=== PATIENT | male | born 1970 | race Caucasian/White ===

== ENCOUNTER → 2018-11-07 17:11 | Outpatient (CLI) | payer BC, SELFPAY ==
--- NOTE | 2018-11-07 17:25 | XR_ITS ---
XR chest 2V HISTORY: ITS.REASON: HYPERTENSION; TYPE 2 DIABETES MELLITUS WITHOUT COMPLICATION ORDERING PHYSICIAN: Óscar Quiles MD PATIENT AGE: 48 years COMPARISON: 12/21/2016 FINDINGS: The cardiomediastinal silhouette and pulmonary vascularity are within normal limits. The lungs are clear without infiltrates, suspicious nodules, or pleural effusions. No acute bony abnormalities. IMPRESSION: Negative chest, no change with no acute finding
== END ==
PROVIDERS: PCP Family Medicine; Visit Provider Family Medicine
DX: E11.9 Type 2 diabetes mellitus without complications (principal)
CPT/HCPCS: 71046

== ENCOUNTER → 2019-11-01 11:23 | Outpatient (CLI) | payer BC, SELFPAY ==
--- NOTE | 2019-11-01 12:15 | XR_ITS ---
PROCEDURE: XR CHEST 2V CLINICAL HISTORY: UPPER RESPIRATORY INFECTION COMPARISON: CXR CHEST(2 VIEWS-NOT PORTABLE) from 12/21/2016 CXR2V XR chest 2V from 11/07/2018 FINDINGS: The cardiomediastinal silhouette and pulmonary vascularity are within normal limits. The lungs are clear without infiltrates, suspicious nodules, or pleural effusions. No acute bony abnormalities. IMPRESSION: No acute findings. Dictated by: Bal Mead 11/01/2019 13:14 Electronically signed by Bal Mead in [facility] 11/01/2019 13:14
== END ==
PROVIDERS: PCP Nurse Practitioner Family; Visit Provider Nurse Practitioner Family
DX: J06.9 Acute upper respiratory infection, unspecified (principal)
CPT/HCPCS: 71046

== ENCOUNTER 2020-03-31 10:29 | Emergency (ER) | payer BC, SELFPAY ==
[2020-03-31 10:30] VITALS: BP 164/109; PULSE 80; RESP 16; TEMP 36.7; O2SAT 97; BMI 34.2
--- NOTE | 2020-03-31 10:44 | XR_ITS ---
PROCEDURE: XR RIBS RT MIN 3V W CXR1V CLINICAL INDICATION: fall, right chest wall pain COMPARISON: CXR CHEST(2 VIEWS-NOT PORTABLE) from 12/21/2016 CXR2V XR chest 2V from 11/07/2018 XR CHEST 2V from 11/01/2019 FINDINGS: The lung rodriguez are fairly well expanded and appear clear of infiltrate. Cardiac size is normal and vascularity is normal and there is no pleural fluid. Oblique right rib films show minor cortical thickening of the 12th rib anteriorly probably due to old healed fracture. I see no definite acute right rib fracture. IMPRESSION: No acute findings. Dictated by: Dr. Mohit Alex MD 03/31/2020 11:[address] Mohit Alex MD in [facility] 03/31/2020 11:57
--- NOTE | 2020-03-31 10:57 | PC.NURSE ---
Pt with rad
--- NOTE | 2020-03-31 11:01 | PC.NURSE ---
pt return from radiology
--- NOTE | 2020-03-31 11:02 | PC.NURSE ---
Pt returned from rad
--- NOTE | 2020-03-31 11:52 | HMH.EDGENADL ---
ED Disposition Clinical Impression: Rib contusion Disposition: Home, Self-Care Condition on Discharge: Good Prescriptions: Nabumetone 750 mg PO BID 10 Days #20 tab Transmission Status: Pending to [facility] # Methocarbamol [Robaxin 500mg Tab*] 500 mg PO QID 10 Days #30 tab Transmission Status: Pending to [facility] # Referrals: Óscar Quiles MD [Primary Care Provider] - - Critical Care Critical Care Time: No Attestation: On 03/31/20, the high probability of a clinically significant, sudden or life threatening deterioration of the following system(s) required my full and direct attention, intervention and personal management. The time I documented below is in addition to time spent performing reported procedures but includes the following listed in this critical care notation. Medical Decision Making - Medical Records Medical records reviewed: Yes: I reviewed the patient's medical records. - Julio C Inquiry Pt receiving controlled substance: No Vital Signs: 03/31/20 10:30 Temperature 98.1 F Temperature Source Oral Pulse Rate [Left Radial] 80 Respiratory Rate 16 Blood Pressure [Right Arm] 164/109 H Blood Pressure Mean [Right Arm] 127 Blood Pressure Position [Right Arm] Sitting 02 Sat by Pulse Oximetry 97 Oxygen Delivery Method Room Air - Lab Data Lab results reviewed: Yes: I reviewed the patient's lab results. Orders (Tests/Meds): ORDERS Category Date Time Status XR ribs RT min 3V w CXR1V Stat Exams 03/31/20 10:44 Taken - Radiology Data #1 Image(s): Chest Preliminary Findings: Normal/NAD General Adult HPI - General Chief complaint: PAIN Stated complaint: AO 1000 Fell 4 ft onto his ribs Time Seen by Provider: 03/31/20 11:52 Mode of Arrival: Ambulatory Limitations: No Limitations Description of Symptoms (Recalled from ER Triage Doc. by RN): to ed per pvt car with c/o rt side rib pain pt states he was building a deck walking across a joust it broke he fell landing on another joust it broke and fell approx 4 ft to the ground. pt denies any abd pain, nausea, vomiting - History of Present Illness HPI narrative: 49-year-old gentleman was building a deck fell off 1 of the ER joists and landed on his rib cage on 1 of the joystick below. Fell roughly 3 feet. He is complaining about some chest wall pain. He describes his pain as a sharp sensation midaxillary line over the fifth and sixth ribs. He states his pain is 4-10 classifies as sharp. Alleviating factors include rest exacerbating factors include increasing intrathoracic pressure. Patient denies any nausea vomiting diarrhea. Patient denies any shortness of breath or cough. Patient denies any loss of taste or smell. Patient denies any general malaise fatigue arthralgias myalgias. Denies any overt subjective or objective fevers. - Related Data Previous Rx's Medication Instructions Recorded Amoxicillin/Potassium Clav 1 tab PO Q12H #20 tab 03/01/18 [Augmentin 875-125 Tablet] Methocarbamol [Robaxin 500mg Tab*] 500 mg PO QID 10 Days #30 tab 03/31/20 Nabumetone 750 mg PO BID 10 Days #20 tab 03/31/20 Allergies Allergy/AdvReac Type Severity Reaction Status Date / Time montelukast [From [facility]] Allergy Verified 03/01/18 09:59 [facility] History - Hepatitis A Screen Drug use history?: No High risk sexual behaviors?: No History of sexually transmitted infection?: No Currently employed?: No Childcare worker?: No Do you have indoor plumbing?: Yes Do you have electricity?: Yes Attestation statement:: This patient has been screened for Hepatitis A risk factors. I have reviewed the patient's past medical history: Yes Medical History: Denies:: Diabetes Mellitus Type 1, Diabetes Mellitus Type 2, Hypertension Other Medical History: Reports: Other (allergies) Other Surgeries: Yes: Other (nose x 2) Amputation: No Fractures: No - Social History Smoking Status: Former smoke
[2020-03-31 12:18] VITALS: BP 164/109; PULSE 80; RESP 16; TEMP 36.7; O2SAT 97
== END 2020-03-31 12:19 | disposition home or self-care (01) ==
PROVIDERS: Emergency Provider Family Medicine; PCP Family Medicine
DX: S20.212A Contusion of left front wall of thorax, initial encounter (principal); S20.211A Contusion of right front wall of thorax, initial encounter; W17.89XA Other fall from one level to another, initial encounter; Y92.89 Other specified places as the place of occurrence of the external cause; Z87.891 Personal history of nicotine dependence
CPT/HCPCS: 71101; 99282

== ENCOUNTER 2020-04-03 16:54 | Emergency (ER) | payer BC, SELFPAY ==
[2020-04-03 16:56] VITALS: BP 136/94; PULSE 91; RESP 18; TEMP 36.9; O2SAT 97; BMI 34.2
--- NOTE | 2020-04-03 17:03 | HMH.EDGENADL ---
ED Disposition Clinical Impression: Right rib fracture Qualifiers: Encounter type: initial encounter Rib fracture type: single rib Fracture type: closed Qualified Code(s): S22.31XA - Fracture of one rib, right side, initial encounter for closed fracture Disposition: Home, Self-Care Condition on Discharge: Fair Instructions: DI for Rib Fracture Additional Instructions: Percocet as needed for pain. Do not take Erbacon while taking Percocet. Resume Erbacon after Percocet is gone. Additional instructions for RIB INJURIES: See your physician as soon as possible for further evaluation. Hold a pillow against your injured ribs to help with pain when coughing or sneezing. Sleep with several pillows to help support you in the most comfortable position. Take deep breaths frequently. Return immediately if shortness of breath, intolerable pain, coughing of blood, abdominal pain or vomiting. Additional instructions for CONTROLLED SUBSTANCES: You have been prescribed a medication that is a controlled substance. Controlled substances include pain medications known as opiates and sedative nerve medications known as benzodiazepines. Tramadol, fioricet, and gabapentin are also controlled substances. Some common opiates include: Codeine (such as Tylenol #3) Hydrocodone (Vicodin, Lortab, Lorcet, Erbacon) Oxycodone (Percocet, Percodan, Oxycodone, Oxy IR) Some common benzodiazepines include: Diazepam (Valium) Lorazepam (Ativan) Alprazolam (Xanax) Clonazepam (Klonopin) Oxazepam (Serax) All of these controlled substances are highly addictive and frequently abused. Misuse can and frequently does lead to addiction as well as overdose and . Medication should be stored in a locked cabinet or other secure storage unit. Do not store the medication in a motor vehicle. Short term supplies, 3 days or less, are prescribed because of the highly addictive nature of the medication. Any of the controlled substance medication NOT taken should be disposed of properly and NOT SAVED. The recommended method of disposing of unused medications is: Place the medicines in a sealable plastic bag. If the medicine is a solid, crush it or add water to dissolve it. Add something undesirable (cat litter, coffee grounds, etc.) Dispose of sealed bag in household trash Do not flush or pour unused medicines down a sink or drain. Controlled substances should not be shared, given away or sold. Because of the addictive nature and frequent abuse, these medications are sometimes stolen. These medications should be kept in a safe place where they cannot be stolen. Do not keep them in your car or purse. Lost or stolen prescriptions for controlled substances WILL NOT BE REFILLED in this emergency department, regardless of whether a police report was filed. Prescriptions: Oxycodone HCl/Acetaminophen [Percocet 5/325mg tablet] 1 tab PO Q6HP PRN #12 tab PRN Reason: Moderate To Severe Pain Transmission Status: Received by [facility] #[id number] Referrals: Óscar Quiles MD [Primary Care Provider] - - Critical Care Critical Care Time: No Attestation: On , the high probability of a clinically significant, sudden or life threatening deterioration of the following system(s) required my full and direct attention, intervention and personal management. The time I documented below is in addition to time spent performing reported procedures but includes the following listed in this critical care notation. Medical Decision Making - Medical Records Medical records reviewed: Yes: I reviewed the patient's medical records. - Julio C Inquiry Pt receiving controlled substance: Yes Julio C was queried for this patient: Yes Reference #:: [id number] Risks and benefits of using a controlled substance: were not discussed with pt by me Comment: 19 rxs. Gets 60 hydrocodone- APAP/month. last 03/31/20 Vital Signs: 04/03/20 16:56 04/03/20 18:18 Temp
--- NOTE | 2020-04-03 17:14 | CT_ITS ---
PROCEDURE: CT CHEST WO CON CLINICAL INDICATION: injured ribs COMPARISON: ABDPELW CT ABD PELVIS W/ CONTRAST from 05/29/2015 TECHNIQUE: Axial images obtained with sagittal and coronal reformats. All CT scans at the facility use one or more dose reduction, viz: automated exposure control, ma/kV adjustment per patient size (including targeted exams where dose is matched to indication, i.e. head), or iterative reconstruction technique. FINDINGS: Tracheobronchial tree is unremarkable. There are few patchy infiltrates within the left lower lobe. The thyroid is unremarkable. There are coronary artery calcifications. There is no significant mediastinal adenopathy. There is a small hernia. Adrenal glands are unremarkable. Hepatic steatosis is noted. There is nondisplaced fracture of the anterior right T6 rib IMPRESSION: Nondisplaced fracture right anterior T6 rib, left lower lobe infiltrate, hepatic steatosis Dictated by: Justin Beltran 04/04/2020 08:29 Electronically signed by Justin Beltran in [facility] 04/04/2020 08:29
--- NOTE | 2020-04-03 18:08 | PC.NURSE ---
Dr Carpio in with PT.
[2020-04-03 18:18] VITALS: BP 134/85; PULSE 80; RESP 20; TEMP 36.8; O2SAT 98
== END 2020-04-03 18:21 | disposition home or self-care (01) ==
PROVIDERS: Emergency Provider Emergency Medicine; PCP Family Medicine
DX: S22.31XA Fracture of one rib, right side, initial encounter for closed fracture (principal); W01.0XXA Fall on same level from slipping, tripping and stumbling without subsequent striking against object, initial encounter
CPT/HCPCS: 71250; 96372; 99282; J2405

== ENCOUNTER → 2021-02-18 17:41 | Outpatient (CLI) | payer BC, SELFPAY ==
--- NOTE | 2021-02-18 17:45 | XR_ITS ---
PROCEDURE INFORMATION: Exam: XR Left Wrist Exam date and time: 02/18/2021 5:45 PM Age: 50 years old Clinical indication: Left; Patient HX: Wrist pain, no known injury; Additional info: Left wrist pain TECHNIQUE: Imaging protocol: XR Left wrist. Views: 3 or more views. COMPARISON: No relevant prior studies available. FINDINGS: Bones/joints: There is no evidence of acute fracture.There is no evidence of malalignment or dislocation. Soft tissues: Normal. IMPRESSION: There is no evidence of acute fracture.There is no evidence of malalignment or dislocation.
[2021-02-18 18:38] LABS: Basophils % 0.3 % (0.1-2.0); Eosinophils # 0.2 K/mm3 (0.0-0.4); Hematocrit 43.2 % (42.0-52.0); Hemoglobin 14.7 g/dL (14.1-18.0); Lymphocytes # 3.4 K/mm3 (0.7-4.5); Lymphocytes % 41.8 % (10-50); Mean Corpuscular HGB Conc 33.9 g/dL (31.8-35.4); Mean Corpuscular Hemoglobin 29.9 pg (27.0-31.2); Mean Corpuscular Volume 88.2 fl (80-94); Mean Platelet Volume 7.6 fl (7.4-10.4); Monocytes # 0.5 K/mm3 (0.1-1.0); Monocytes % 6.4 % (1.7-9.3); Neutrophils # 4.1 K/mm3 (1.8-7.8); Neutrophils % 49.5 % (37.0-80.0); Platelet Count 226 K/mm3 (142-424); White Blood Count 8.2 K/mm3 (4.8-10.8)
[2021-02-18 18:45] LABS: Chloride 102 mmol/L (98-107); Sodium 137 mmol/L (136-145)
[2021-02-18 18:46] LABS: Potassium 4.4 mmoL/L (3.5-5.1)
[2021-02-18 18:48] LABS: Alanine Aminotransferase 35 U/L (12-78); Albumin Level 4.5 g/dl (3.5-5.0); Alkaline Phosphatase 75 U/L (38-126); Anion Gap 12.4 mEq/L (5-15); Aspartate Amino Transferase 27 U/L (17-59); Bilirubin,Total 0.6 mg/dl (0.2-1.3); Blood Urea Nitrogen 16 mg/dl (9-20); Calcium 9.6 mg/dl (8.4-10.2); Carbon Dioxide 27 mmol/L (22.0-30.0); Estimated Glomerular Filt Rate 89 ml/min (>60); GFR (African American) 108 ML/MIN (>60); Globulin 2.3 g/dL (1.3-3.2); Glucose 144 mg/dl (74-100); Total Protein,Serum 6.8 g/dl (6.3-8.2)
[2021-02-18 19:06] LABS: Uric Acid 5.7 mg/dl (3.5-8.5)
[2021-02-18 19:20] LABS: Thyroid Stimulating Hormone 2.08 uIU/mL (0.465-4.68)
[2021-02-18 20:13] LABS: Vitamin B12 313 pg/mL (239-931)
[2021-02-18 20:17] LABS: Folate 8.27 ng/mL
[2021-02-18 20:55] LABS: Erythrocyte Sedimentation Rate 11 mm/hr (0-20)
[2021-02-20 09:20] LABS: RA Latex Turbid. <10.0 IU/mL (0.0-13.9)
[2021-02-23 10:37] LABS: Antinuclear Antibodies, IFA Negative (.)
== END ==
PROVIDERS: PCP Family Medicine; Visit Provider Specialist
DX: M54.2 Cervicalgia (principal); Q76.1 Klippel-Feil syndrome; R25.1 Tremor, unspecified; M25.532 Pain in left wrist; M25.541 Pain in joints of right hand; M25.542 Pain in joints of left hand; G89.29 Other chronic pain
CPT/HCPCS: 36415; 73110; 80053; 82607; 82746; 84443; 84550; 85025; 85651; 86038; 86431

== ENCOUNTER 2022-06-23 08:11 | Emergency (ER) | payer BC, SELFPAY ==
[2022-06-23 08:40] VITALS: BP 140/90; PULSE 73; RESP 19; TEMP 36.8; O2SAT 98; BMI 34.2
--- NOTE | 2022-06-23 09:06 | EXP.UTC ---
Discharge Plan Disposition Patient Disposition: Home, Self-Care Condition: Good Prescriptions Prescriptions: New amoxicillin-pot clavulanate 875-125 mg Tablet 1 tab PO Q12H Qty: 20 0RF No Action metformin 850 mg tablet 850 mg PO BID sumatriptan succinate 50 mg tablet 50 mg PO DAILYP PRN (Reason: Headache) glimepiride 2 mg tablet 2 mg PO DAILY Referrals Follow up/Referrals: Óscar Quiles MD [Primary Care Provider] - See instructions Activity Restrictions/Add. Instructions Additional Instructions/Restrictions: *Monitor Temp, Over the counter Motrin or Tylenol as directed/as needed Tylenol every 4 hours and Motrin every 6 hours (as long as your family doctor has told you that you can take it) for fever or pain. and straight to ER if unable to lower temp less than 101.0 after medication given *Warm salt water gargles may help to soothe the throat *Throat Lozenges? *Warm fluids like tea with honey may help to soothe the throat? *Sleep elevated *Humidifier/Vaporizer *Flonase 2 sprays in each nostril daily but be aware that it may take 2-3 days before you notice improvement Follow up IMMEDIATELY for new or worsening symptoms or no Noticeable improvement over the next 48-72 hours. 911 for difficulty breathing or swallowing Clinical Impressions Clinical Impression: Sinusitis Instructions Patient Instructions: DI for Sinusitis, Sinusitis Discharge ED Provider: Lola Taylor [facility] General Stated complaint: drainage,throat feels scratchy Mode of Arrival: Ambulatory Source of Information: Patient Limitations: No Limitations Time Seen by Provider: 06/23/22 09:06 Description of Symptoms (Recalled from Triage Doc. by RN): PATIENT C/O BILATERAL EAR PAIN, AND SINUS DRAINAGE/PRESSURE X 1 WEEK HEENT Symptoms (Recalled from RN notes): Yes Resp Symptoms (Recalled from RN notes): No Skin Symptoms (Recalled from RN notes): No MS Symptoms (Recalled from RN notes): No Functional Status (Recalled from RN notes): WNL History of Present Illness Provider Complaint: Patient states that he has been having sinus problems for over a week States that he is having sinus pain and pressure and pressure behind his eyes States that he gets it about this time every year and has to get something for it States that he has tried OTC meds and they havent helped so he came in Related Data Home Medications Medication Instructions Recorded Confirmed metformin 850 mg tablet 850 mg PO BID Diabetes 02/17/21 06/23/22 glimepiride 2 mg tablet 2 mg PO DAILY Diabetes 06/23/22 06/23/22 sumatriptan succinate 50 mg tablet 50 mg PO DAILYP PRN Headache 06/23/22 06/23/22 Previous Rx's Medication Instructions Recorded amoxicillin 875 mg-potassium 1 tab PO Q12H #20 tabs 06/23/22 clavulanate 125 mg tablet Allergies Allergy/AdvReac Type Severity Reaction Status Date / Time No Known Allergies Allergy Verified 03/24/21 14:33 Worker's Comp Is this a Worker's Comp case?: No [facility] Medical History (Updated 06/23/22 @ 09:12 by Lola Taylor APRN) Diabetes mellitus, type 2 Social History (Updated 06/23/22 @ 09:00 by Mary Garcia RN) Smoking Status: Former smoker alcohol intake: never substance use type: denies use current occupational status: employed Travel in the last 8 weeks: None household members: other housing: other ROS Obtained: Yes All systems reviewed & no additional complaints except as documented and Yes Systems reviewed as appropriate & no additional complaints except as documented Constitutional Constitutional: Reports system reviewed and no additional complaints, except as documented and Reports as per HPI ENT Ears, Nose, Mouth, and Throat: Reports system reviewed and no additional complaints, except as documented, Reports as per HPI, Reports sinus pain and Reports sinus pressure Cardiovascular Cardiovascular: Reports system reviewed and no a
[2022-06-23 09:15] VITALS: BP 140/90; PULSE 73; RESP 19; TEMP 36.8; O2SAT 98
== END 2022-06-23 09:20 | disposition home or self-care (01) ==
PROVIDERS: Emergency Provider Nurse Practitioner; PCP Family Medicine
DX: J01.90 Acute sinusitis, unspecified (principal)
CPT/HCPCS: 99212; G0463

== ENCOUNTER 2022-07-22 16:45 | Emergency (ER) | payer BC, SELFPAY ==
[2022-07-22 17:20] VITALS: BP 124/74; PULSE 74; RESP 20; TEMP 36.6; O2SAT 96; BMI 34.2
--- NOTE | 2022-07-22 17:31 | EXP.UTC ---
Discharge Plan Disposition Patient Disposition: Left Without Being Seen Clinical Impressions Clinical Impression: Patient left after triage Discharge ED Provider: Boris Woods [facility] HPI General Stated complaint: drainage, neck pain Left Time Seen by Provider: 07/22/22 17:31 History of Present Illness Provider Complaint: He left without being fully evaluated. Related Data Home Medications Medication Instructions Recorded Confirmed metformin 850 mg tablet 850 mg PO BID Diabetes 02/17/21 06/23/22 glimepiride 2 mg tablet 2 mg PO DAILY Diabetes 06/23/22 06/23/22 sumatriptan succinate 50 mg tablet 50 mg PO DAILYP PRN Headache 06/23/22 06/23/22 Previous Rx's Medication Instructions Recorded amoxicillin 875 mg-potassium 1 tab PO Q12H #20 tabs 06/23/22 clavulanate 125 mg tablet Allergies Allergy/AdvReac Type Severity Reaction Status Date / Time No Known Allergies Allergy Verified 03/24/21 14:33 [facility] Medical History (Updated 07/22/22 @ 18:28 by Mary Garcia RN) Diabetes mellitus, type 2 Social History (Updated 07/22/22 @ 17:32 by Mary Garcia RN) Smoking Status: Former smoker alcohol intake: never substance use type: denies use current occupational status: employed Travel in the last 8 weeks: None household members: other housing: other ROS Obtained: Yes All systems reviewed & no additional complaints except as documented Physical Exam General General appearance: alert Respiratory Respiratory exam: Present normal lung sounds bilaterally Cardiovascular Cardiovascular exam: Present regular rate Neurological Exam Neurological exam: Present alert Medical Decision Making Julio C Inquiry Pt receiving controlled substance: No
[2022-07-22 18:27] VITALS: BP 124/74; PULSE 74; RESP 20; TEMP 36.6; O2SAT 96
== END 2022-07-22 18:28 | disposition left against medical advice (07) ==
PROVIDERS: Emergency Provider Nurse Practitioner Family; PCP Family Medicine
DX: M54.2 Cervicalgia (principal); E11.9 Type 2 diabetes mellitus without complications; Z53.21 Procedure and treatment not carried out due to patient leaving prior to being seen by health care provider; Z79.84 Long term (current) use of oral hypoglycemic drugs; Z79.899 Other long term (current) drug therapy; Z87.891 Personal history of nicotine dependence

== ENCOUNTER 2022-09-29 09:37 | Emergency (ER) | payer BC, SELFPAY ==
[2022-09-29 09:55] VITALS: BP 168/98; PULSE 76; RESP 20; TEMP 36.4; O2SAT 95; BMI 34.2
--- NOTE | 2022-09-29 10:11 | EXP.UTC ---
Discharge Plan Disposition Patient Disposition: Home, Self-Care Condition: Good Prescriptions Prescriptions: No Action metformin 850 mg tablet 850 mg PO BID sumatriptan succinate 50 mg tablet 50 mg PO DAILYP PRN (Reason: Headache) glimepiride 2 mg tablet 2 mg PO DAILY amoxicillin-pot clavulanate 875-125 mg Tablet 1 tab PO Q12H Qty: 20 0RF Referrals Follow up/Referrals: Óscar Quiles MD [Primary Care Provider] - See instructions Activity Restrictions/Add. Instructions Additional Instructions/Restrictions: Follow up with your Family Doctor Return if needed Straight to ER if any life threatening symptoms Clinical Impressions Clinical Impression: Encounter for laboratory testing for COVID-19 virus Stand Alone Forms Stand Alone Forms: Work/School Release Instructions Patient Instructions: Coronavirus Disease 2019, COVID-19: Testing and Tracing Discharge ED Provider: Lola Taylor [facility] General Stated complaint: Covid+ 09/24 retest Mode of Arrival: Ambulatory Source of Information: Patient Limitations: No Limitations Time Seen by Provider: 09/29/22 10:11 Description of Symptoms (Recalled from Triage Doc. by RN): PATIENT NEEDING RETESTED FOR COVID FOR WORK. REPORTS A POSITIVE COVID TEST ON WEDNESDAY HEENT Symptoms (Recalled from RN notes): No Resp Symptoms (Recalled from RN notes): No Skin Symptoms (Recalled from RN notes): No MS Symptoms (Recalled from RN notes): No Functional Status (Recalled from RN notes): WNL History of Present Illness Provider Complaint: Patient states that he had tested positive last week for COVID States that he has Quarantined for his 5 days and no longer having symptoms but work wanted him to get retested before he can return Related Data Home Medications Medication Instructions Recorded Confirmed metformin 850 mg tablet 850 mg PO BID Diabetes 02/17/21 06/23/22 glimepiride 2 mg tablet 2 mg PO DAILY Diabetes 06/23/22 06/23/22 sumatriptan succinate 50 mg tablet 50 mg PO DAILYP PRN Headache 06/23/22 06/23/22 Previous Rx's Medication Instructions Recorded amoxicillin 875 mg-potassium 1 tab PO Q12H #20 tabs 06/23/22 clavulanate 125 mg tablet Allergies Allergy/AdvReac Type Severity Reaction Status Date / Time No Known Allergies Allergy Verified 03/24/21 14:33 Worker's Comp Is this a Worker's Comp case?: No [facility] Disclaimer: The information contained in this section may have been updated after the patient was seen, as this information can be updated by other users. Medical History (Updated 09/29/22 @ 10:14 by Lola Taylor APRN) Diabetes mellitus type 1 Social History (Updated 09/29/22 @ 10:05 by Mary Garcia RN) Smoking Status: Former smoker alcohol intake: never substance use type: denies use current occupational status: employed Travel in the last 8 weeks: None household members: other housing: other ROS Obtained: Yes All systems reviewed & no additional complaints except as documented and Yes Systems reviewed as appropriate & no additional complaints except as documented Constitutional Constitutional: Reports system reviewed and no additional complaints, except as documented and Reports as per HPI ENT Ears, Nose, Mouth, and Throat: Reports system reviewed and no additional complaints, except as documented and Reports as per HPI Cardiovascular Cardiovascular: Reports system reviewed and no additional complaints, except as documented and Reports as per HPI Respiratory Respiratory: Reports system reviewed and no additional complaints, except as documented and Reports as per HPI Gastrointestinal Gastrointestingal: Reports system reviewed and no additional complaints, except as documented and as per HPI Physical Exam General General appearance: alert and in no apparent distress Expanded ENT Exam Nose exam: Absent sinus tenderness Throat exam: Present normal inspection Respiratory Respirator
[2022-09-29 10:14] VITALS: BP 168/98; PULSE 76; RESP 20; TEMP 36.4; O2SAT 95
== END 2022-09-29 10:20 | disposition home or self-care (01) ==
PROVIDERS: Emergency Provider Nurse Practitioner; PCP Family Medicine
DX: U07.1 COVID-19 (principal)
CPT/HCPCS: 99212; C9803; G0463; U0003; U0005

== ENCOUNTER 2022-12-02 08:13 | Day surgery (SDC) | payer BC, SELFPAY ==
[2022-11-04 14:14] VITALS: BMI 33.4
[2022-12-02] VITALS (8 sets, daily range): BP systolic 109–141; BP diastolic 57–81; PULSE 67–82; RESP 15–18; TEMP 36.3–36.6; O2SAT 92–97
[2022-12-02 09:07] LABS: POC Glucose,Bedside 198 (70-110)
--- NOTE | 2022-12-02 09:37 | P.PN_ITS ---
[facility] Disclaimer: The information contained in this section may have been updated after the patient was seen, as this information can be updated by other users. Medical History Diabetes mellitus type 1 History of deviated nasal septum Hx of nasal polyp Hypertension Surgical History H/O vasectomy History of cholecystectomy Family History Other Family history of diabetes mellitus type II Social History Smoking Status: Former smoker alcohol intake: never substance use type: denies use current occupational status: employed Travel in the last 8 weeks: None household members: significant other housing: house lives independently: Yes marital status: single current occupational exposures/hazards: Yes caffeine: Yes physical activity: none special eden needs: No agree to transfusion: No do you feel safe at home: Yes victim of physical abuse: No victim of emotional abuse: No victim of sexual abuse: No would you like helpful sources: No [facility] Anesthesia Checklist Patient Identification Patient Identification: Arm Band Structural Data Admitted From: Home Planned Operative Procedure/s: Colonoscopy Consent for Planned Operative Procedure(s) Verified: Yes Verified Documents: Surgical Consent and History and Physical NPO Status Verified Time NPO: 00:00 Additional verifications Anesthesia Reactions: No Airway Assessment C-Spine Mobility Assessed: Yes TMJ Mobility Assessed: Yes Dentition: Good Dentition Neurological Assessment Level of Consciousness: Awake and Alert Anesthesia Plan Anesthesia Risk discussed: Yes Anesthesia Plan: Verified ASA Class: II Anesthesia Type: MAC
--- NOTE | 2022-12-02 09:56 | HMH.SCOPE ---
Procedure: Date: 12/02/22 Patient Date of :: 1970 Procedure Performed:: Colonoscopy Indications:: Screening colonoscopy Performing Provider:: Rashi Torres MD Referring Provider:: Norberto Quiles MD Sedation:: See RN records Procedure:: After placing the patient in the left lateral decubitus position, the colonoscopy was gently inserted into the rectum and under direct visualization advanced to the cecum which was identified by transillumination in the right lower quadrant, identification of the ileocecal valve, appendiceal orifice, and cecal strap. Color, texture, mucosa, and anatomy of the colon were carefully examined with the scope. Findings:: Anal canal: normal Rectum: Sessile polyp less than 5 mm in size. Removed with cold forceps Sigmoid colon: normal without polyps or inflammatory changes Descending colon: normal without polyps or inflammatory changes Splenic flexure: normal Transverse colon: normal without polyps or inflammatory changes Hepatic flexure: normal Ascending colon: normal without polyps or inflammatory changes Cecum: normal Terminal ileum: not visualized Impression: Polyp of rectum Recommendations:: Await pathology results Repeat colonoscopy in 5 years Complications:: None Estimated blood obtained (mL): 0
== END 2022-12-02 10:50 | disposition home or self-care (01) ==
PROVIDERS: PCP Family Medicine; Visit Provider Internal Medicine
PROC: 0DJD8ZZ Inspection of Lower Intestinal Tract, Via Natural or Artificial Opening Endoscopic (ICD-10-PCS; CPT 45378; principal; 2022-12-02 09:30)
DX: Z12.11 Encounter for screening for malignant neoplasm of colon (principal); Z79.899 Other long term (current) drug therapy; E11.9 Type 2 diabetes mellitus without complications; K62.1 Rectal polyp
CPT/HCPCS: 45380; 82962; 88305

== ENCOUNTER 2023-01-18 08:09 | Emergency (ER) | payer BC, SELFPAY ==
[2023-01-18 08:30] VITALS: BP 146/94; PULSE 76; RESP 18; TEMP 36.3; O2SAT 96; BMI 33.4
--- NOTE | 2023-01-18 09:08 | EXP.UTC ---
Discharge Plan Disposition Patient Disposition: Home, Self-Care Condition: Good Prescriptions Prescriptions: New benzonatate 100 mg capsule 100 mg PO TID PRN (Reason: cough) Qty: 30 0RF amoxicillin-pot clavulanate 875-125 mg Tablet 1 tab PO Q12H Qty: 20 0RF guaifenesin [Mucinex] 600 mg tablet extended release 12hr 1,200 mg PO BID PRN (Reason: cough) Qty: 20 0RF No Action metformin 850 mg tablet 850 mg PO BID lisinopril 10 mg tablet 10 mg PO DAILY Label Comments: TAKE 1 TABLET BY MOUTH EVERY DAY montelukast [Singulair] 10 mg Tablet 10 mg PO DAILY loratadine [Claritin] 10 mg Tablet 10 mg PO DAILY Referrals Follow up/Referrals: Óscar Quiles MD [Primary Care Provider] - See instructions Activity Restrictions/Add. Instructions Additional Instructions/Restrictions: Start antibiotic today. Be sure to complete entire prescription even if feeling better Monitor temp. Tylenol every 4 hours as needed and / or ibuprofen every 6 hours as needed ( As long as your primary care physician has told you that it ok to take both. For fever/aches/pains ER if no less than 101 despite Tylenol or Motrin Humidifier/vaporizer or hot steamy shower Inhaler every 4-6 hours as needed like we discussed. If unsure how to use it, ask pharmacist to demonstrate how. Should help open airways and improve cough, wheezing, and shortness of breath Mucinex for your cough and cough suppressant only at night. Be sure to drink lots of water. *Tessalon Perles will not cause drowsiness but use at bedtime to help stop cough so that you may get some rest. Follow up IMMEDIATELY for new or worsening of symptoms OR no noticeable improvement over the next 48-72 hours. 911 immediately for any life threatening symptoms such as chest pain or difficulty breathing Clinical Impressions Clinical Impression: Sinusitis Qualifiers: Sinusitis location: unspecified location Chronicity: unspecified Qualified Code(s): J32.9 - Chronic sinusitis, unspecified Instructions Patient Instructions: Sinusitis, Acute Bronchitis, DI for Sinusitis Discharge ED Provider: Lola Taylor [facility] General Stated complaint: Drainage, chest congestion Mode of Arrival: Ambulatory Source of Information: Patient Limitations: No Limitations Time Seen by Provider: 01/18/23 09:08 Description of Symptoms (Recalled from Triage Doc. by RN): PATIENT C/O RUNNY NOSE, SINUS DRAINAGE, COUGH, AND CHEST BURNING WITH COUGH SINCE WEDNESDAY HEENT Symptoms (Recalled from RN notes): Yes Resp Symptoms (Recalled from RN notes): Yes Skin Symptoms (Recalled from RN notes): No MS Symptoms (Recalled from RN notes): No Functional Status (Recalled from RN notes): WNL History of Present Illness Provider Complaint: Patient states that he started getting sick last week States that on Wednesday it got worse States that he has been having sinus pain and pressure, cough, drainage in the back of his throat into his chest and cough States that at times he is having burning in his chest with cough that has not got any better Related Data Home Medications Medication Instructions Recorded Confirmed metformin 850 mg tablet 850 mg PO BID Diabetes 02/17/21 01/18/23 lisinopril 10 mg tablet 10 mg PO DAILY Hypertension 11/04/22 01/18/23 loratadine 10 mg tablet (Claritin) 10 mg PO DAILY allergies 12/02/22 01/18/23 montelukast 10 mg tablet 10 mg PO DAILY allergies 12/02/22 01/18/23 (Singulair) Previous Rx's Medication Instructions Recorded amoxicillin 875 mg-potassium 1 tab PO Q12H #20 tabs 01/18/23 clavulanate 125 mg tablet benzonatate 100 mg capsule 100 mg PO TID PRN cough #30 caps 01/18/23 guaifenesin 600 mg tablet, 1,200 mg PO BID PRN cough #20 tabs 01/18/23 extended release 12 hr (Mucinex) Allergies Allergy/AdvReac Type Severity Reaction Status Date / Time No Known Allergies Allergy Verified 03/24/21 14:33 Worker
[2023-01-18 09:20] VITALS: BP 146/94; PULSE 76; RESP 18; TEMP 36.3; O2SAT 96
== END 2023-01-18 09:23 | disposition home or self-care (01) ==
PROVIDERS: Emergency Provider Nurse Practitioner; PCP Family Medicine
DX: J01.90 Acute sinusitis, unspecified (principal); R07.89 Other chest pain; I10 Essential (primary) hypertension; Z87.891 Personal history of nicotine dependence
CPT/HCPCS: 99212; 99214; G0463

== ENCOUNTER 2024-01-03 08:00 | Emergency (ER) | payer BC, SELFPAY ==
[2024-01-03 08:10] VITALS: BP 118/87; PULSE 68; RESP 20; TEMP 36.6; O2SAT 97; BMI 32.6
--- NOTE | 2024-01-03 08:24 | ED_ITS ---
Discharge Plan Disposition Patient Disposition: Home, Self-Care Condition: Good Prescriptions Prescriptions: New prednisone 10 mg tablet 10 mg PO BID 5 Days Qty: 10 0RF amoxicillin-pot clavulanate 875-125 mg Tablet 1 tab PO Q12H Qty: 20 0RF guaifenesin [Mucinex] 600 mg tablet extended release 12hr 1,200 mg PO BID PRN (Reason: cough) Qty: 20 0RF No Action celecoxib 200 mg capsule 200 mg PO DAILY Patient Comments: TAKE 1 CAPSULE BY MOUTH DAILY WITH FOOD hydrocodone-acetaminophen 7.5-325 mg tablet 1 tab PO TID Patient Comments: TAKE 1 TABLET BY MOUTH THREE TIMES DAILY NEEDED lisinopril 10 mg tablet 10 mg PO DAILY Ozempic 0.25 mg or 0.5 mg (2 mg/3 mL) pen injector 0.25 mg SQ WEEKLY Patient Comments: INJECT 0.25MG SUBCUTANEOUSLY ONCE WEEKLY DIRECTED Referrals Follow up/Referrals: Óscar Quiles MD [Primary Care Provider] - See instructions Activity Restrictions/Add. Instructions Additional Instructions/Restrictions: *Monitor Temp, Over the counter Motrin or Tylenol as directed/as needed Tylenol every 4 hours and Motrin every 6 hours (as long as your family doctor has told you that you can take it) for fever or pain. and straight to ER if unable to lower temp less than 101.0 after medication given *Warm salt water gargles may help to soothe the throat *Throat Lozenges? *Warm fluids like tea with honey may help to soothe the throat? *Sleep elevated *Humidifier/Vaporizer Your throat swab was sent for culture. Those results are typically sent to your primary care. Be sure to follow up in 2-3 days with your family doctor/primary care physician if no improvement so they can review those result and treat if necessary. If you don?t have a primary care doctor, I recommend you get one but in the mean time, you will have to return to a walk in clinic Follow up IMMEDIATELY for new or worsening symptoms or no Noticeable improvement over the next 48-72 hours. 911 for difficulty breathing or swallowing Clinical Impressions Clinical Impression: Sinusitis Instructions Patient Instructions: DI for Sinusitis, Sinusitis Discharge ED Provider: Lola TaylorH UTC HPI General Stated complaint: sore throat, chest pain, ear pain Mode of Arrival: Ambulatory Source of Information: Patient Limitations: No Limitations Time Seen by Provider: 01/03/24 08:24 Description of Symptoms (Recalled from Triage Doc. by RN): PATIENT C/O COUGH, CHEST CONGESITON, SINUS DRAINAGE, SORE THROAT, HEADACHE, AND RINGING IN EARS X 2 DAYS HEENT Symptoms (Recalled from RN notes): Yes Resp Symptoms (Recalled from RN notes): Yes Skin Symptoms (Recalled from RN notes): No MS Symptoms (Recalled from RN notes): No Functional Status (Recalled from RN notes): WNL History of Present Illness Provider Complaint: Patient states that he started feeling bad a few days ago States he has been having sinus pain and pressure, drainage in the back of his throat, sore throat, chest congestion and cough States today the pressure behind his eyes was worse so he came in Related Data Home Medications Medication Instructions Recorded Confirmed celecoxib 200 mg capsule 200 mg PO DAILY 01/03/24 01/03/24 hydrocodone 7.5 mg-acetaminophen 1 tab PO TID 01/03/24 01/03/24 325 mg tablet lisinopril 10 mg tablet 10 mg PO DAILY 01/03/24 01/03/24 semaglutide 0.25 mg or 0.5 mg (2 0.25 mg SQ WEEKLY 01/03/24 01/03/24 mg/3 mL) subcutaneous pen injector (Ozempic) Previous Rx's Medication Instructions Recorded amoxicillin 875 mg-potassium 1 tab PO Q12H #20 tabs 01/03/24 clavulanate 125 mg tablet guaifenesin 600 mg tablet, 1,200 mg (2 x 600 mg) PO BID PRN 01/03/24 extended release 12 hr (Mucinex) cough #20 tabs prednisone 10 mg tablet 10 mg PO BID 5 days #10 tabs 01/03/24 Allergies Allergy/AdvReac Type Severity Reaction Status Date / Time No Known Allergies Allergy Verified 03/24/21 14:33 Worker's Comp Is this a Worker's Comp case?: No [facility] Disclaimer: The information contained in this section may have been updated after the patient was seen, as this information can be updated by other users. Medical History (Updated 01/03/24 @ 08:54 by Lola Taylor APRN) History of deviated nasal septum Hx of nasal polyp Hypertension Diabetes mellitus type 1 Surgical History H/O vasectomy History of cholecystectomy Family History Other Family history of diabetes mellitus type II Social History Smoking Status: Former smoker alcohol intake: never substance use type: denies use current occupational status: employed Travel in the last 8 weeks: None household members: significant other housing: house lives independently: Yes marital status: single current occupational exposures/hazards: Yes caffeine: Yes physical activity: none special eden needs: No agree to transfusion: No do you feel safe at home: Yes victim of physical abuse: No victim of emotional abuse: No victim of sexual abuse: No would you like helpful sources: No ROS Obtained: Yes All systems reviewed & no additional complaints except as documented and Yes Systems reviewed as appropriate & no additional complaints except as documented Constitutional Constitutional: Reports system reviewed and no additional complaints, except as documented, Reports as per HPI and Reports headache(s) ENT Ears, Nose, Mouth, and Throat: Reports system reviewed and no additional complaints, except as documented, Reports as per HPI, Reports otalgia (ringing in ears), Reports headache(s), Reports sinus pain, Reports sinus pressure and Reports sore throat Cardiovascular Cardiovascular: Reports system reviewed and no additional complaints, except as documented, Reports as per HPI and Denies chest pain Respiratory Respiratory: Reports system reviewed and no additional complaints, except as documented, Reports as per HPI, Reports chest congestion and Reports cough Gastrointestinal Gastrointestingal: Reports system reviewed and no additional complaints, except as documented and as per HPI Neurologic Neurologic: Reports headache(s) Physical Exam General General appearance: alert and in no apparent distress ENT ENT exam: Present mucous membranes moist Expanded ENT Exam Nose exam: Present sinus tenderness Throat exam: Present other (Pharyngeal erythema noted with PND) Respiratory Respiratory exam: Present normal lung sounds bilaterally; Absent respiratory distress or wheezes Cardiovascular Cardiovascular exam: Present regular rate, normal rhythm and normal heart sounds Neurological Exam Neurological exam: Present alert, oriented X3 and normal gait Medical Decision Making Julio C Inquiry Pt receiving controlled substance: No Julio C was queried for this patient: No Vital Signs: 01/03/24 08:10 Temperature 97.8 F Temperature Source Oral Pulse Rate [Right Brachial] 68 Respiratory Rate 20 Blood Pressure [Right Arm] 118/87 Blood Pressure Mean [Right Arm] 97 Blood Pressure Source [Right Arm] Automatic Cuff Blood Pressure Position [Right Arm] Sitting 02 Sat by Pulse Oximetry 97 Oxygen Delivery Method Room Air Lab Data Lab results reviewed: Yes I reviewed the patient's lab results. Medical Decision Narrative: Patient states that he is a diabetic but has taken steriods in the past and not affected his blood sugar
[2024-01-03 08:40] LABS: UTC Strep Screen (Rapid) Negative (Negative)
[2024-01-03 08:51] VITALS: BP 118/87; PULSE 68; RESP 20; TEMP 36.6; O2SAT 97
== END 2024-01-03 09:04 | disposition home or self-care (01) ==
PROVIDERS: Emergency Provider Nurse Practitioner; PCP Family Medicine
DX: J01.90 Acute sinusitis, unspecified (principal); R09.82 Postnasal drip; R07.0 Pain in throat; R09.81 Nasal congestion; R05.9 Cough, unspecified; I10 Essential (primary) hypertension; E11.9 Type 2 diabetes mellitus without complications; Z79.85 Long-term (current) use of injectable non-insulin antidiabetic drugs; Z87.891 Personal history of nicotine dependence
CPT/HCPCS: 87880; 99212; 99214; G0463

== ENCOUNTER 2025-01-18 11:54 | Outpatient (CLI) | payer BC, SELFPAY ==
--- NOTE | 2025-01-18 | CA_ITS ---
APPROVED REPORT Exam: Exercise Treadmill Technologist: Alaina Castro Ht: 5 ft 8 in Wt: 215 lbs BSA: 2.11 m2 HR: 57 bpm BP: 151/82 mmHg Rhythm: NSR Medical History Medical History: HTN, Diabetes Medications: Lisinopril, Metformin, Jardiance Allergies: Claritin, Singulair Cardiac Risk Factors: HTN, , Diabetes Stress Test Details Test: Exercise stress testing was performed using a David protocol. HR Resting HR: 57 bpm Max Heart Rate (APMHR): 165 bpm Max HR Achieved: 144 bpm Target HR (85% APMHR): 140 bpm % of APMHR: 87 Recovery HR: 88 bpm HR response to stress: Normal HR response to stress BP Resting BP: 151.0/82.0 mmHg Max BP: 205.0/80.0 mmHg Recovery BP: 160.0/87.0 mmHg BP response to stress: Abnormal hypertensive response to stress. ECG Resting ECG: NSR, PVCs, PACs Stress EC mm horizontl ST depression Arrhythmia: PACs, PVCs Clinical Exercise duration: 10.30 min Exercise capacity: 10.3 METs Stress ECG Conclusion Pt had dyspnea, no chest pain. Ectopy: occasional PVCs and PACs at rest and with exercise. ST changes: [address] depression. Conclusion: Average exercise capacity. Equivocal evidence of ischemia on ECG at peak stress. Explay [employer] images reported separately. Electronically signed by : Rubia Kelly MD 01/21/2025 15:22:55
--- NOTE | 2025-01-18 11:58 | NM_ITS ---
APPROVED REPORT Exam: Nuclear Stress Test Patient Location: Outpatient Stress Tech: Alaina Castro [place] Tech:Tamiko DanyRAMON vargas RT (R)(N)(M) Ht: 5 ft 8 in Wt: 215 lbs HR: 57 bpm BP: 151/82 mmHg BSA: 2.11 m2 TID: 0.99 BMI: 32.6 Procedure: Patient exercised on David protocol 10:30 minutes and sec, resting heart rate 57 bpm, resting blood pressure 151/82 mmHg, with exercise maximum heart rate achived was 144 bpm which is 87 % of the maximum predicted heart rate and blood pressure was 205/80 mmHg. Test was stopped due to fatigue. Patient denied any complaint of chest pain. Patient has average exercise capacity, achieved 10.3 METs of workload on treadmill, the blood pressure response to exercise was exaggerated. Cardiac Stress and Resting SPECT Images: Cardiac Stress and Resting SPECT images were obtained using technetium 99m Myoview 31.4 mCi stress and 10.54 mCi at rest. Resting and stress imaging in supine and prone positions demonstrate a large-sized, moderate, predominantly fixed perfusion defect in the inferior LV wall. There is a region of reversibility toward the distal inferior and inferoapical LV banda. Gated imaging demonstrates mild reduction in LV systolic function. There is moderate hypokinesis of the basal and mid-inferior LV banda. LVEF is calculated at 49%. Conclusion: Large-sized, moderate, predominantly fixed perfusion defect in the inferior LV wall. There is a region of reversibility toward the distal inferior and inferoapical LV banda. Gated imaging demonstrates mild reduction in LV systolic function. There is moderate hypokinesis of the basal and mid-inferior LV banda. LVEF is calculated at 49%. Of note, the patent had an exaggerated BP response to exercise. Further BP control is suggested. Electronically signed by : Rubia Kelly MD 01/21/2025 15:19:34
[2025-01-18] MEDS: SODIUM CHLORIDE 0.9% 10ML SYR (RAD ONLY) 10 ML IV ×2 (14:06)
[2025-01-18] MEDS: ISOTOPE MYOVIEW (PER STUDY) 1 DOSE IV (14:06)
--- OUTSIDE RECORDS SUMMARY | 2025-01-18 23:20 | XMS_ITS | Data Portability ---
Author Organization JOHN - NETO [facility] Address [address] [place] [address] Care Team Providers Care Heel Gouger Name Role Phone ASYA MANNING Primary Care Provider [phone] Assessment No assessment recorded. Plan of Treatment Reminders Order Date Submit Date Provider Last Modified By Organization Details Last Modified Time Details Appointments None recorded. Lab None recorded. Referral None recorded. Procedures None recorded. Surgeries None recorded. Imaging None recorded. Medication Orders dexamethaso ne sodium phosphate 10 mg/mL injection solution 2021 022 [email or web address] [id number] Not available 15:51:00 Flonase Sensimist 27.5 mcg/actuati on nasal spray,suspe nsion 2021 [address]22 [address] [id number], [address], [id number], 2 17:01:21 Patient TargetsNo targets recorded. Patient Instructions Encounter Date Encounter Id Patient Instructions Last Modified By Organization Details Last Modified Time 04/10/2022 [id number] 1. Audiogram obt ained today- Type C tymps bilaterally, 35dbs in the right, 25dbs in the left, Bilateral mixed hearing loss 2. Rx- Flonase Sensimist Nasal [place]- 1 spray in each nostril bid (directed pt on proper use of spray) 3. F/u prn [email or web address] Not available 04/10/2022 16:53:35 06/12/2022 [id number] 1. Nasopharyngos copy and right binocular microscopy performed ; clinical photos obtained. He did have evidence of polypoid changes and some mucoid discharge around the superior portion of the right middle turbinate. 2. Continue using Flonase sensimist bid daily 3. Decadron 10mg Injection administered today 4. F/u prn [email or web address] Not available 06/12/2022 17:43:14 09/01/2022 [id number] 1. Tympanogram obtained in office today. Results discussed with patient. He has type a tympanograms with slight negative pressure more on the right than the left and poor equalization of eustachian tube 2. Recommend using nasal steroid spray. Showed him how to use this properly? also talked about the auto inflation technique 3. F/u prn. ladan Not available 09/01/2022 17:27:20 06/16/2024 [id number] 1. Nasal Endosco py performed in office today. He states tube opening on the right looks clear however he does have a polypoid change of the middle turbinate which is likely contributing to his sinus issues. 2. Ryaltris sample provided to patient - will trial for right sided nasal congestion/polypoid changes. 3. Follow up in 6-8 weeks for repeat nasal endoscopy. ladan Not available 06/16/2024 17:09:09 Reason for Referral None Reported. Results Created Date Observation Date Name Description Value Unit Range Abnormal Flag Note LastModifiedBy Organization Detail LastModifiedTime 04/14/20 22 04/10/2022 audio gram No observ ation record ed. BARCODE Not Available 2021 10:59:10 09/02/20 22 09/01/2022 audio gram No observ ation record ed. BARCODE Not Available 2021 15:07:29 Result Notes None recorded. Problems No Known Problems Procedures Surgical History Date Name Laterality Status Provider Name and Address Organization Details Recorded Time 024 Endoscopy Nasal; Diagnostic completed Cali Cruz [facility] 06/16/2024 16:30:13 022 Tympanogram completed KACIE ALFRED, AUD [address] [place], [address], [facility] 09/01/2022 16:54:55 022 Eustachian Tube Function test completed KACIE ALFRED, AUD [address] [place], [address], [facility] 09/01/2022 16:55:01 022 Nasopharyngoscopy completed Eliza Pulliam [facility] 06/12/2022 16:29:12 022 Binocular Microscopy completed Eliza Pulliam [facility] 06/12/2022 16:29:39 022 Tympanogram completed TIM ERICKSON AUD [address] [place], [address], [facility] 04/10/2022 16:47:12 022 Audiogram completed TIM ERICKSON AUD [address] [place], [address], [facility] 04/10/2022 16:47:10 019 Binocular Microscopy completed Keri Jannie [facility] 02/07/2019 13:56:18 019 Ears/Nose/Throat Surgery completed Romina Singletary [facility] 02/07/2019 13:38:24 019 Binocular Microscopy completed Keri Valderrama [facility] 12/20/2018 15:36:14 018 Tympanogram completed GURJIT GONSALVES, AUD [address] [place], [address], [facility] 12/24/2017 15:19:11 018 Audiogram completed GURJIT GONSALVES AUD [address] [place], [address], [facility] 12/24/2017 15:19:09 018 Binocular Microscopy completed Keri Valderrama [facility] 12/24/2017 15:51:13 Imaging Results Imaging Date Name Status LastModified by Organiz ation Details LastModified Time 04/10/2022 audiogram completed BARCODE Information no t available 04/14/2022 10:59:10 09/01/2022 audiogram completed BARCODE Information no t available 09/02/2022 15:07:29 Procedure Notes None recorded. Medical Equipment None Reported. Allergies No known drug allergies Medications Name Sig Start Date Stop Date Status Note LastModified by Organization Details LastModified Time Singulair 10 mg tablet Take 1 tablet every day by oral route. 12/20 completed Not Available Not Available Not Available metformin 500 mg tablet Take 1 tablet twice a day by oral route. active Not Available Not Available No t Available Claritin 10 mg tablet Take 1 tablet every day by oral route. 12/20 completed Not Available Not Available Not Available amoxicillin 875 mg tablet Take 1 tablet every 12 hours by oral route. 04/19 completed Not Available Not Available Not Available dexamethaso ne sodium phosphate 10 mg/mL injection solution Take 10 mg by injection route. 09/01 completed Not Available Not Available Not Available ipratropium bromide 21 mcg (0.03 %) nasal spray 1 spray in each nostril BID 12/20 completed Not Available Not Available Not Available amoxicillin 02/07 completed Not Available Not Available Not Available naproxen 02/07 completed Not Available Not Available Not Available Claritin active Not Available Not Avai lable Not Available Singulair active Not Available Not Lianna ilable Not Available Stahist 04/10 completed Not Available Not Available Not Available Flonase Sensimist 27.5 mcg/actuati on nasal spray,suspe nsion Take 1 spray twice a day by nasal route. 2021 active Not Available Not Available Not Avai lable Vitals Date Recorded Body weight Body mass index (BMI) Body height Oxygen saturation Oxygen saturation in Arterial blood by Pulse oximetry Heart rate Systolic blood pressure Diastolic blood pressure Provider Name and Address Organization Details Last Updated DateTime 2 940782. 35 g 36.8 kg/m2 172.72 cm 97 % 97 % 70 /min 140 mm[Hg] 82 mm[Hg] Barb Rossi [facility] 2 16:22:38 Date Recorded Body height Body mass index (BMI) Body weight Body temperature Oxygen saturation Oxygen saturation in Arterial blood by Pulse oximetry Heart rate Systolic blood pressure Diastolic blood pressure Provider Name and Address Organization Details Last Updated DateTime 2 172.72 cm 34.4 kg/m2 216548. 88 g 98 [degF] 98 % 98 % 67 /min 137 mm[Hg] 81 mm[Hg] Enid Maynard [facility] 2 15:55:34 Date Recorded Body height Body mass index (BMI) Body weight Body temperature Systolic blood pressure Diastolic blood pressure Provider Name and Address Organization Details Last Updated DateTime 2 172.72 cm 34.7 kg/m2 716047. 06 g 97.9 [degF] 148 mm[Hg] 83 mm[Hg] Alida Gardner [facility] 2 15:50:56 Date Recorded Body height Body mass index (BMI) Body weight Body temperature Heart rate Oxygen saturation Oxygen saturation in Arterial blood by Pulse oximetry Systolic blood pressure Diastolic blood pressure Provider Name and Address Organization Details Last Updated DateTime 4 172.72 cm 32.1 kg/m2 84642.9 9 g 98.3 [degF] 66 /min 99 % 99 % 122 mm[Hg] 85 mm[Hg] Elo Reyes [facility] 4 16:01:45 Social History Question Answer Notes LastModified by Organizat ion Details LastModified Time Tobacco Smoking Status [facility]/2017 14:43:42 What Is Your Level Of Alcohol Consumption? None [email or web address] Information not available 12/24/2017 What Was The Date Of Your Most Recent Tobacco Screening? 04/10/2022 Information not available 04/10/2022 Do You Use Any Illicit Or Recreational Drugs? No Information not available 04/10/2022 Has Tobacco Cessation Counseling Been Provided? No Information not available 04/10/2022 How Many Years Have You Smoked Tobacco? 16 [email or web address] Information not available 12/24/2017 Do You Or Have You Ever Used Any Other Forms Of Tobacco Or Nicotine? No Information not available 04/10/2022 Sex: Unknown Functional Status None recorded. Mental Status None recorded. Family History Relationship Description Onset Age of this Age Resolved Age Notes LastModified by Organization Details LastModified Time Father Hearing loss [email or web address] Not lianna ilable 12/24/2017 14:43:36 Medical History Condition Response Kidney Stones N Hyperthyroidism N Heart Arrhythmia N Emphysema N Esophagus/swallowing troubles N Glaucoma N Depression N Hypothyroidism N Lung Disease N Anesthesia Complications N Anxiety Disorder N Arthritis N Hearing Loss N Acid Reflux (GERD) N Cancer N Stroke N Hoarseness N Alcohol Overuse/Alcohol Abuse N High Cholesterol N Snoring problems N Liver Disease N Headaches N Kidney Disease N Allergies/Hayfever N Heart Problems N Mental handicap N Ear or Hearing Problems N Gallbladder Disease N Migraines N Thyroid Problems N Goiter N Anemia N Immune System Disorder N Chest Pain N Stomach trouble N Ulcers N Heart Attack (SC) N Diabetes N Rheumatic Fever N Bleeding Disorder N Tuberculosis N AIDS/HIV N Hyperlipidemia N Asthma N Epilepsy/Seizures N Sleep Disorder N Hepatitis N Heart Disease N Hypertension N Past Encounters Encounter ID Performer Location Encounter Start Date Encounter Closed Date Diagnosis/Indication Diagnosis SNOMED-CT Code Diagnosis ICD10 Code Diagnosis Note [id number] RAMAN ALBERTS MD SURGERY SCHEDULE [address] [place] [address] 09/25/2016 13:48:02 09/25/2016 13:50:14 [id number] MD JOHN SWEET III [facility] [address] [place] [address] 12/24/2017 14:36:12 12/27/2017 13:46:31 Sensorineural hearing loss of bilateral ears 923065874 H90.3 He has high-frequ ency loss bilaterall y but symmetric Cleft uvula 81472563 Q35 .7 Perforatio n of right tympanic membrane 6008106812 310300 H72.91 Dysfunctio n of eustachian tube 72608905 H69.91 [id number] MILI VIEYRA ENT [address] [place] [address] 12/24/2017 15:00:09 12/27/2017 13:51:28 Sensorineural hearing loss of bilateral ears 607948829 H90.3 Bilateral tinnitus 37302 83257 102 H93.13 [id number] MD JOHN SWEET III ENT [address] [place] [address] 04/19/2018 15:10:33 04/20/2018 08:22:38 Sensorineural hearing loss of bilateral ears 571687102 H90.3 He has high-frequ ency loss bilaterall y but symmetric Cleft uvula 92310181 Q35 .7 Perforatio n of right tympanic membrane 5531425813 319490 H72.91 Dysfunctio n of eustachian tube 55168993 H69.91 Chronic rhinitis 3195845 6 J31.0 [id number] MD JOHN SWEET III RD [address] [place] [address] 12/20/2018 14:32:45 12/21/2018 09:25:41 Sensorineural hearing loss of bilateral ears 179049208 H90.3 He has high-frequ ency loss bilaterall y but symmetric Cleft uvula 54519619 Q35 .7 Perforatio n of right tympanic membrane 6405674893 711571 H72.91 Dysfunctio n of eustachian tube 85586547 H69.91 Chronic rhinitis 7517106 6 J31.0 Hypertroph y of nasal turbinates 87841537 J34.3 Chronic re current sinusitis 694575204 J32.9 [id number] DESMOND GLASGOW III, MD SURGERY SCHEDULE [address] [place] [address] 01/16/2019 08:32:50 01/16/2019 08:40:52 [id number] MD JOHN SWEET III, RD [address] [place] [address] 02/07/2019 13:36:23 02/07/2019 16:00:18 Perforation of right tympanic membrane 5708619000 046447 H72.91 - S/p Right tympanopla sty, with harvest of fascia from separate incision site (01/16/19) Right cond uctive hearing loss 1592325550 109 H90.11 - S/p Right tympanopla sty, with harvest of fascia from separate incision site (01/16/19) Granulation of tissue 22 1614540 R23.8 [id number] MD JOHN SWEET III RD [address] [place] [address] 03/17/2019 11:10:25 03/17/2019 12:42:43 Perforation of right tympanic membrane 1504191028 259713 H72.91 - S/p Right tympanopla sty, with harvest of fascia from separate incision site (01/16/19) Right cond uctive hearing loss 3603772241 109 H90.11 - S/p Right tympanopla sty, with harvest of fascia from separate incision site (01/16/19) Granulation of tissue 22 9485992 R23.8 Cleft uvula 41468042 Q35 .7 Taste sense altered 2718 85252 R43.2 I think this is temporary and is likely related to movement of the chorda tympani nerve intraopera tively Posterior rhinorrhea 758 52953 R09.82 [id number] DESMOND GLASGOW III, MD [facility] [id number] [place] [address] 04/10/2022 15:39:48 04/14/2022 08:32:48 Perforation of right tympanic membrane 6992461494 921492 H72.91 - S/p Right tympanopla sty, with harvest of fascia from separate incision site (01/16/19) Dysfunctio n of bilateral eustachian tubes 5525862136 450241 H69.93 Ear pressu re sensation 796231700 H93.8X9 Mixed cond uctive and sensorineural hearing loss, bilateral 450141104 H90.6 Deviated nasal septum 12 8075848 J34.2 Cleft uvula 12109518 Q35 .7 [id number] MILI POP CO ENT [address] [place] [address] 04/10/2022 16:46:51 04/10/2022 16:49:00 Mixed conductive and sensorineural hearing loss, bilateral 677191751 H90.6 Dysfunctio n of eustachian tube 63778666 H69.93 Bilateral tinnitus 90390 62488 102 H93.13 [id number] DESMOND GLASGOW III, MD [place] [facility] [address] 7 06/12/2022 15:37:27 06/16/2022 19:14:02 Dysfunction of bilateral eustachian tubes 7549510085 199950 H69.93 Ear pressu re sensation 782970467 H93.8X9 Mixed cond uctive and sensorineural hearing loss, bilateral 023652477 H90.6 Polyp of n migdalia cavity and/or nasal sinus 210420741 J33.9 Allergic rhinitis 708724 04 J30.9 [id number] DESMOND GLASGOW III, MD [place] [address] [place] [address] 09/01/2022 15:31:34 09/02/2022 08:03:50 Dysfunction of bilateral eustachian tubes 2869521989 369366 H69.93 Mixed cond uctive and sensorineural hearing loss, bilateral 601459606 H90.6 Posterior rhinorrhea 758 82337 R09.82 Ear pressu re sensation 222245558 H93.8X9 [id number] MILI AWAD CO ENT [address] [place] [address] 09/01/2022 16:51:07 09/01/2022 17:36:02 Dysfunction of bilateral eustachian tubes 1499373217 685299 H69.93 Bilateral earache 006619 003 H92.03 [id number] DESMOND GLASGOW III, MD [place] [address] [address] [place] [address] 06/16/2024 14:41:24 06/16/2024 16:40:23 Dysfunction of bilateral eustachian tubes 0741604052 134279 H69.93 Mixed cond uctive and sensorineural hearing loss, bilateral 736846234 H90.6 Posterior rhinorrhea 758 84381 R09.82 Ear pressu re sensation 295243963 H93.8X9 Tympanosclerosis 0617287 1 H74.03 Polyp of n migdalia cavity and/or nasal sinus 571719645 J33.9 06/16/24 Nasal endoscopy = polypoid changes attached to middle turbinate observed in right nasal cavity Health Concerns Section Related Observation LastModified by Organization Detai ls LastModified Time None Recorded Concern Status LastModified by Organization Details LastModified Time None Recorded Advance Directives Directive None Recorded Payers Encounter Date Sequence Insurance Name Policy Number Policy Mcmullen Covered Member ID Mcmullen Member ID Guarantor Name 04/10/2022 1 [place] [id number] 2 Ubaldo Nguyễn [id number] Ubaldo Jewelllione 06/12/2022 1 [place] [id number] 2 Ubaldo Nguyễn [id number] Ubaldo Jewelllione 09/01/2022 1 [place] [id number] 2 Ubaldo Nguyễn [id number] Ubaldo Bestlione 09/01/2022 1 [place] [id number] 2 Ubaldo Nguyễn [id number] Ubaldo Jewelllione 06/16/2024 1 [place] [id number] 2 Ubaldo Nguyễn [id number] Ubaldo Jewelllione Notes Date Note Type Note Provider Name and Address Organization Details Recorded Time 04/10/2022 text/html Ubaldo comes in [facility] for evaluation of right ear pressure. He is status post Right tympanoplasty, with harvest of fascia from separate incision site from 01/16/19. He has been symptomatic for about 6 weeks now. He has tried antihistamines for his current right ear symptoms. He does not notice nasal obstruction and has not had recent drainage from his right ear. Ubaldo has tried to auto-inflate the ear with no relief so far. His left ear is not a concern today. DESMOND GLASGOW III, [place] [place], [address], [facility] 04/10/2022 17:01:17 06/12/2022 text/html Ubaldo returns to day for evaluation of drainage. He states for the last 3 weeks every morning that drains into his throat and spitting up brown mucus. Ubaldo was using a Flonase His right ear and neck have been itching. He is currently using a compounding nasal spray He is status post Right tympanoplasty, with harvest of fascia from separate incision site from 01/16/19. DESMOND GLASGOW III, MD [facility] [place], [address], [facility] 06/12/2022 17:43:37 09/01/2022 text/html Ubaldo visits us in office today for fluid in his right ear. Ubaldo states he feels like there is water in his right ear. It is not affecting his hearing. He does not actually see any fluid coming out of his ears. He does have drainage in the back of his throat. DESMOND GLASGOW III, MD [address] [place] [address] [place], [address], [facility] 09/01/2022 17:27:34 06/16/2024 text/html Ubaldo Nguyễn ( 53M) visits our office for an evaluation of fluid in his right ear. He reports that he has felt fluid in his right ear for the past 3 months. He is having trouble getting his ears to clear. He also deals with some nasal congestion (R>L). DESMOND GLASGOW III, MD [address] [place] [address] [place], [address], [facility] 06/16/2024 17:09:43
== END 2025-01-18 23:59 | disposition home or self-care (01) ==
LOC: RAD 11:55
PROVIDERS: PCP Family Medicine; Visit Provider Family Medicine
DX: R07.9 Chest pain, unspecified (principal)
CPT/HCPCS: 78452; 93017; 93018; A9502

== ENCOUNTER 2025-02-15 12:29 | Outpatient (CLI) | payer BC, SELFPAY ==
[2025-02-15 13:00] LABS: Basophils % 0.3 % (0.1-2.0); Eosinophils # 0.1 Kmm3 (0.0-0.4); Eosinophils % 2.1 % (0.1-12.0); Hematocrit 46.6 % (42.0-52.0); Hemoglobin 16.5 g/dL (14.1-18.0); Immature Granulocytes # 0.04 10^3uL; Immature Granulocytes % 0.6 %; Lymphocytes # 2.1 K/mm3 (0.7-4.5); Lymphocytes % 33.2 % (10-50); Mean Corpuscular HGB Conc 35.4 g/dL (31.8-35.4); Mean Corpuscular Volume 87.4 fl (80-94); Mean Platelet Volume 9.9 fl (7.4-10.4); Monocytes # 0.5 K/mm3 (0.1-1.0); Monocytes % 7.3 % (1.7-9.3); Neutrophils # 3.6 K/mm3 (1.8-7.8); Neutrophils % 56.5 % (37.0-80.0); Nucleated Red Blood Cells # 0 10^3/uL; Nucleated Red Blood Cells % 0 %; Platelet Count 198 K/mm3 (142-424); Red Blood Count 5.33 M/mm3 (4.60-6.20); Red Cell Distribution Width 11.7 % (11.5-17.5); Red Cell Distribution Width-SD 37.1 fL; White Blood Count 6.3 K/mm3 (4.8-10.8)
[2025-02-15 13:10] LABS: D-Dimer < 0.25 ug/mL (0.0-0.5)
[2025-02-15 13:18] LABS: Alanine Aminotransferase 46 U/L (12-78); Albumin Level 4.6 g/dl (3.5-5.0); Alkaline Phosphatase 98 U/L (38-126); Anion Gap 11.5 mEq/L (5-15); Aspartate Amino Transferase 34 U/L (17-59); Bilirubin,Direct 0.1 mg/dl (0.0-0.4); Bilirubin,Indirect 0.8 mg/dL (0.0-0.9); Bilirubin,Total 0.9 mg/dl (0.2-1.3); Bilirubin,Unconjugated 0.7 mg/dL (0.0-1.1); Blood Urea Nitrogen 14 mg/dl (9-20); Calcium 9.7 mg/dl (8.4-10.2); Carbon Dioxide 24 mmol/L (22.0-30.0); Chloride 103 mmol/L (98-107); Chol/HDL Ratio 3.8 (1-3.5); Cholesterol 162 mg/dl (140-200); Estimated Glomerular Filt Rate 88 ml/min (>60); GFR (African American) 106 ML/MIN (>60); Glucose 271 mg/dl (74-100); HDL Cholesterol 43 mg/dl (40-60); Magnesium 2.1 mg/dl (1.6-2.3); Potassium 4.5 mmoL/L (3.5-5.1); Sodium 134 mmol/L (136-145); Total Protein,Serum 6.7 g/dl (6.3-8.2); Triglycerides 272 mg/dl (30-150); VLDL Cholesterol 54 mg/dL (0-40)
[2025-02-15 13:30] LABS: Direct LDL Cholesterol 74.88 mg/dL (100-129)
[2025-02-15 13:37] LABS: Free T4 (Free Thyroxine) 1.12 ng/dl (0.78-2.19)
[2025-02-15 13:51] LABS: Thyroid Stimulating Hormone 0.95 uIU/mL (0.465-4.68)
== END 2025-02-15 23:59 | disposition home or self-care (01) ==
LOC: LAB 12:30
PROVIDERS: PCP Family Medicine; Visit Provider Nurse Practitioner
DX: I20.89 Other forms of angina pectoris (principal); I10 Essential (primary) hypertension; R53.83 Other fatigue; E10.9 Type 1 diabetes mellitus without complications; R94.39 Abnormal result of other cardiovascular function study
CPT/HCPCS: 36415; 80048; 80061; 80076; 83735; 84439; 84443; 85025; 85378

== ENCOUNTER 2025-02-16 08:38 | Day surgery (SDC) | payer BC, SELFPAY ==
[2025-02-16] VITALS (10 sets, daily range): BP systolic 109–148; BP diastolic 55–88; PULSE 50–75; RESP 16–20; TEMP 36.9; O2SAT 93–100; BMI 33.3
--- NOTE | 2025-02-16 07:15 | IR_ITS ---
APPROVED REPORT Patient Location: Outpatient PROCEDURES Left heart catheterization Left ventriculogram Selective coronary angiogram INDICATION Abnormal Myoview, Angina pectoris Informed consent was obtained prior to the procedure. COMPLICATIONS NONE Estimated Blood Loss: LESS THAN 10 ML TECHNIQUE One percent lidocaine used to anesthetize the right anterior aspect of the wrist. The right radial artery was accessed via the Seldinger technique. A 6 Divehi sheath was placed in the right radial artery. 2.5 mg of Verapamil, 800 mcg of nitroglycerin, 1mg Lidocaine and 5000 U Heparin were given through the arterial sheath. The 6 Divehi JL 3 catheter was also used to perform left heart catheterization, left ventriculogram and selective coronary angiogram. At the end of the procedure the sheath was removed good hemostasis was achieved using Traclet band, patient was transferred to the postop holding area in stable condition. ANGIOGRAPHIC RESULTS The left main artery Normal The left anterior descending artery Normal The circumflex artery Large dominant gives rise to a very large bifurcating first obtuse marginal artery. Distal to the OM there is a 10% plaque. The second obtuse marginal artery is small and is immediately adjacent to a 40% concentric stenosis. 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 Patient is not on any antianginal medications therefore recommend adding antianginals 2. Treatment of LDL with high intensity statin goal of 55 or less 3. Avoidance of tobacco products 4. At this point would not be appropriate to revascularize the circumflex artery. Patient is not on any antianginal medications nor statins. Furthermore stenting this vessel with almost certainly occluded the second obtuse marginal artery. The angiographic stenosis severity does not warrant revascularization at this time and this vessel should respond favorably to medical management Electronically signed by : Nehemiah Dailey MD 02/16/2025 12:05:36
[2025-02-16] MEDS: HEPARIN 1,000 UNITS/500ML NS (CATH LAB) 3000 UNIT IV (11:38)
[2025-02-16] MEDS: LIDOCAINE 1% 10ML MDV 10 ML IJ (11:39)
[2025-02-16] MEDS: HEPARIN 1,000 UNITS/ML 10ML VIAL (CATH LAB) 5000 UNIT IV (11:39)
[2025-02-16] MEDS: 0.9 % SODIUM CHLORIDE 500 ML 25 ML IV (11:39)
[2025-02-16] MEDS: NITROGLYCERIN 800MCG/8ML SYR (CATH LAB) 800 MCG IA (11:39)
[2025-02-16] MEDS: diphenhydrAMINE 50MG/ML VIAL 50 MG IV (11:39)
[2025-02-16] MEDS: VERAPAMIL 2.5MG/ML 2ML VIAL 2.5 MG IV (11:40)
[2025-02-16] MEDS: FENTANYL 100MCG/2ML VIAL 50 MCG IV (12:03)
[2025-02-16] MEDS: MIDAZOLAM HCL 1MG/ML 5ML VIAL 1 MG IV (12:03)
[2025-02-16] MEDS: IOPAMIDOL-370 (76%);100ML BOTTLE 50 ML IV (13:03)
== END 2025-02-16 13:36 | disposition home or self-care (01) ==
LOC: CATHLAB 08:39
PROVIDERS: PCP Family Medicine; Visit Provider Internal Medicine
PROC: 4A023N7 Measurement of Cardiac Sampling and Pressure, Left Heart, Percutaneous Approach (ICD-10-PCS; CPT 93452; principal; 2025-02-16 11:15)
DX: I25.118 Atherosclerotic heart disease of native coronary artery with other forms of angina pectoris (principal); R94.39 Abnormal result of other cardiovascular function study; I10 Essential (primary) hypertension; E10.9 Type 1 diabetes mellitus without complications; Z79.84 Long term (current) use of oral hypoglycemic drugs; Z79.85 Long-term (current) use of injectable non-insulin antidiabetic drugs; Z79.899 Other long term (current) drug therapy
CPT/HCPCS: 93458; 99152; C1725; C1769; J1200; J1644; J3010; Q9967

== ENCOUNTER 2025-02-22 14:49 | Outpatient (CLI) | payer BC, SELFPAY ==
--- NOTE | 2025-02-22 15:00 | CA_ITS ---
FINAL REPORT CLINICAL HISTORY: right heart catheterization with right radial artery access FINDINGS: Spectral and Doppler waveform evaluations of the right wrist was performed. Spectral analysis was performed. There is proper flow noted in the radial artery. No evidence of pseudoaneurysm. IMPRESSION: No evidence of pseudoaneurysm. Reviewed, Interpreted and Dictated by Genaro Arechiga MD Transcribed by Kelli Galan Authenticated and [facility]
--- NOTE | 2025-02-22 15:15 | CA_ITS ---
FINAL REPORT TECHNIQUE: Graded compression, spectral analysis and ultrasound images of the venous system of the right upper extremity were obtained. CLINICAL HISTORY: right arm pain s/p right heart catheterization w/ right wrist access 02/16/25 FINDINGS: The jugular vein, subclavian vein, axillary vein, brachial vein, cephalic vein and basilic venous system are fully compressible and demonstrate no evidence of thrombosis. IMPRESSION: No evidence of thrombosis of the venous system of the right upper extremity. Reviewed, Interpreted and Dictated by Genaro Arechiga MD Transcribed by Kelli Galan Authenticated and [facility]
== END 2025-02-22 23:59 | disposition home or self-care (01) ==
LOC: RT 14:49
PROVIDERS: PCP Family Medicine; Visit Provider Nurse Practitioner Family
DX: I97.630 Postprocedural hematoma of a circulatory system organ or structure following a cardiac catheterization (principal)
CPT/HCPCS: 93931; 93971

== ENCOUNTER 2025-03-02 15:09 | Outpatient (CLI) | payer BC, SELFPAY ==
--- OUTSIDE RECORDS SUMMARY | 2025-03-02 15:10 | XMS_ITS | Data Portability ---
Author Organization [facility] - [facility] [place] [facility] Address [address] [place] [address] Care Team Providers Care Sales Apprentice Name Role Phone ASYA MANNING Primary Care Provider Assessment No assessment recorded. Plan of Treatment Reminders Order Date Submit Date Provider Last Modified By Organization Details Last Modified Time Details Appointments None recorded. Lab None recorded. Referral None recorded. Procedures None recorded. Surgeries None recorded. Imaging None recorded. Medication Orders dexamethaso ne sodium phosphate 10 mg/mL injection solution 2021 022 [place] [address] Not available 15:51:00 Flonase Sensimist 27.5 mcg/actuati on nasal spray,suspe nsion 2021 [id number], [address], [id number], 2 17:01:21 Patient TargetsNo targets recorded. Patient Instructions Encounter Date Encounter Id Patient Instructions Last Modified By Organization Details Last Modified Time 04/10/2022 [id number] 1. Audiogram obt ained today- Type C tymps bilaterally, 35dbs in the right, 25dbs in the left, Bilateral mixed hearing loss 2. Rx- Flonase Sensimist Nasal Comfort- 1 spray in each nostril bid (directed pt on proper use of spray) 3. F/u prn nstaton Not available 04/10/2022 16:53:35 06/12/2022 [id number] 1. Nasopharyngos copy and right binocular microscopy performed ; clinical photos obtained. He did have evidence of polypoid changes and some mucoid discharge around the superior portion of the right middle turbinate. 2. Continue using Flonase sensimist bid daily 3. Decadron 10mg Injection administered today 4. F/u prn Not available 06/12/2022 17:43:14 09/01/2022 [id number] 1. Tympanogram obtained in office today. Results discussed with patient. He has type a tympanograms with slight negative pressure more on the right than the left and poor equalization of eustachian tube 2. Recommend using nasal steroid spray. Showed him how to use this properly? also talked about the auto inflation technique 3. F/u prn. ladan Not available 09/01/2022 17:27:20 06/16/2024 [id number] 1. Nasal Endosco py performed in office [...] 024 Endoscopy Nasal; Diagnostic completed Cali Cruz [facility] 06/16/2024 16:30:13 022 Tympanogram completed KACIE ALFRED, AUD [address] [place], [address], [facility] 09/01/2022 16:54:55 022 Eustachian Tube Function test completed KACIE ALFRED, AUD [address] [place], [address], [facility] 09/01/2022 16:55:01 022 Nasopharyngoscopy completed Eliza Pulliam [facility] 06/12/2022 16:29:12 022 Binocular Microscopy completed Eliza Pulliam [facility] 06/12/2022 16:29:39 022 Tympanogram completed TIM ERICKSON AUD [address] [place], [address], [facility] 04/10/2022 16:47:12 022 Audiogram completed TIM ERICKSON AUD [address] [place], [address], [facility] 04/10/2022 16:47:10 019 Binocular Microscopy completed Keri Jannie [facility] 02/07/2019 13:56:18 019 Ears/Nose/Throat Surgery completed Romina Singletary [facility] 02/07/2019 13:38:24 019 Binocular Microscopy completed Keri Valderrama [facility] 12/20/2018 15:36:14 018 Tympanogram completed GURJIT GONSALVES, AUD [address] [place], [address], [facility] 12/24/2017 15:19:11 018 Audiogram completed GURJIT GONSALVES AUD [address] [place], [address], [facility] 12/24/2017 15:19:09 018 Binocular Microscopy completed Keri Valderrama [facility] 12/24/2017 15:51:13 Imaging Results Imaging Date Name [...] Address Organization Details Last Updated DateTime 2 467289. 35 g 36.8 kg/m2 172.72 cm 97 % 97 % 70 /min 140 mm[Hg] 82 mm[Hg] Barb Rossi [facility] 2 16:22:38 Date Recorded Body height Body mass index (BMI) Body weight Body temperature Oxygen saturation Oxygen saturation in Arterial blood by Pulse oximetry Heart rate Systolic blood pressure Diastolic blood pressure Provider Name and Address Organization Details Last Updated DateTime 2 172.72 cm 34.4 kg/m2 591313. 88 g 98 [degF] 98 % 98 % 67 /min 137 mm[Hg] 81 mm[Hg] Enid Maynard [facility] 2 15:55:34 Date Recorded Body height Body mass index (BMI) Body weight Body temperature Systolic blood pressure Diastolic blood pressure Provider Name and Address Organization Details Last Updated DateTime 2 172.72 cm 34.7 kg/m2 762942. 06 g 97.9 [degF] 148 mm[Hg] 83 mm[Hg] Alida Gardner [facility] 2 15:50:56 Date Recorded Body height Body mass index (BMI) Body weight Body temperature Heart rate Oxygen saturation Oxygen saturation in Arterial blood by Pulse oximetry Systolic blood pressure Diastolic blood pressure Provider Name and Address Organization Details Last Updated DateTime 4 172.72 cm 32.1 kg/m2 71606.9 9 g 98.3 [degF] 66 /min 99 % 99 % 122 mm[Hg] 85 mm[Hg] Elo Reyes [facility] 4 16:01:45 Social History Question Answer Notes LastModified by [employer] Details LastModified Time Tobacco Smoking Status [facility] 14:43:42 What Was The Date Of Your Most Recent Tobacco Screening? 04/10/2022 Information not available 04/10/2022 Has Tobacco Cessation Counseling Been Provided? No Information not available 04/10/2022 How Many Years Have You Smoked Tobacco? 16 [email or web address] Information not available 12/24/2017 Sex: Unknown Functional Status Question Answer Note LastModified by [employer] Details LastModified Time Do you use any illicit or recreational drugs? No Information not available 04/10/2022 Do you or have you ever used any other forms of tobacco or nicotine? No Information not available 04/10/2022 What is your level of alcohol consumption? None [email or web address] Information not available 12/24/2017 Mental Status None recorded. Family History Relationship Description Onset Age of this Age Resolved Age Notes LastModified by Organization Details LastModified Time Father Hearing loss [email or web address] Not lianna ilable 12/24/2017 14:43:36 Medical History Condition Response Kidney Stones N Hyperthyroidism N Heart Arrhythmia N Emphysema N Esophagus/swallowing troubles N Depression N Lung Disease N Hypothyroidism N Glaucoma N Anesthesia Complications N Anxiety Disorder N [...] Stomach trouble N Ulcers N Heart Attack ([place]) N Diabetes N Rheumatic Fever N Bleeding Disorder N Tuberculosis N AIDS/HIV N Hyperlipidemia N Asthma N Epilepsy/Seizures N Sleep Disorder N Hepatitis N Heart Disease N Hypertension N Past Encounters Encounter ID Performer Location Encounter Start Date Encounter Closed Date Diagnosis/Indication Diagnosis SNOMED-CT Code Diagnosis ICD10 Code Diagnosis Note [id number] RAMAN ALBERTS MD SURGERY SCHEDULE [address] [place] [address] 09/25/2016 13:48:02 09/25/2016 13:50:14 [id number] DESMOND GLASGOW III, MD [place] [facility] [address] [place] [id number] 12/24/2017 14:36:12 12/27/2017 13:46:31 Sensorineural hearing loss of bilateral ears 663426875 H90.3 He has high-frequ ency loss bilaterall y but symmetric Cleft uvula 18339450 Q35 .7 Perforatio n of right tympanic membrane 7889125894 379986 H72.91 Dysfunctio n of eustachian tube 32273493 H69.91 [id number] MILI VIEYRA [place] [facility] [address] [place] [address] 12/24/2017 15:00:09 12/27/2017 13:51:28 Sensorineural hearing loss of bilateral ears 267321097 H90.3 Bilateral tinnitus 63606 81838 102 H93.13 [id number] DESMOND GLASGOW III, MD [place] [facility] [address] [place] [address] 04/19/2018 15:10:33 04/20/2018 08:22:38 Sensorineural hearing loss of bilateral ears 246867168 H90.3 He has high-frequ ency loss bilaterall y but symmetric Cleft uvula 29584276 Q35 .7 Perforatio n of right tympanic membrane 4358007023 541789 H72.91 Dysfunctio n of eustachian tube 69079284 H69.91 Chronic rhinitis 3543232 6 J31.0 [id number] DESMOND GLASGOW III, MD [place] [address] [place] [id number] 12/20/2018 14:32:45 12/21/2018 09:25:41 Sensorineural hearing loss of bilateral ears 386231834 H90.3 He has high-frequ ency loss bilaterall y but symmetric Cleft uvula 47181281 Q35 .7 Perforatio n of right tympanic membrane 0697605483 180003 H72.91 Dysfunctio n of eustachian tube 36869770 H69.91 Chronic rhinitis 8823498 6 J31.0 Hypertroph y of nasal turbinates 08748337 J34.3 Chronic re current sinusitis 581507539 J32.9 [id number] DESMOND GLASGOW III, MD SURGERY SCHEDULE [address] [place] [address] 01/16/2019 08:32:50 01/16/2019 08:40:52 [id number] MD JOHN SWEET III, RD [address] [place] [address] 02/07/2019 13:36:23 02/07/2019 16:00:18 Perforation of right tympanic membrane 9813845245 360969 H72.91 - S/p Right tympanopla sty, with harvest of fascia from separate incision site (01/16/19) Right cond uctive hearing loss 7810179664 109 H90.11 - S/p Right tympanopla sty, with harvest of fascia from separate incision site (01/16/19) Granulation of tissue 22 5859371 R23.8 [id number] MD JOHN SWEET III RD [address] [place] [id number] 03/17/2019 11:10:25 03/17/2019 12:42:43 Perforation of right tympanic membrane 6604704821 253781 H72.91 - S/p Right tympanopla sty, with harvest of fascia from separate incision site (01/16/19) Right cond uctive hearing loss 7848383042 109 H90.11 - S/p Right tympanopla sty, with harvest of fascia from separate incision site (01/16/19) Granulation of tissue 22 3995249 R23.8 Cleft uvula 25189775 Q35 .7 Taste sense altered 2718 60825 R43.2 I think this is temporary and is likely related to movement of the chorda tympani nerve intraopera tively Posterior rhinorrhea 758 39038 R09.82 [id number] DESMOND GLASGOW III, MD [place] [address] [place] [address] 04/10/2022 15:39:48 04/14/2022 08:32:48 Perforation of right tympanic membrane 2310979884 305055 H72.91 - S/p Right tympanopla sty, with harvest of fascia from separate incision site (01/16/19) Dysfunctio n of bilateral eustachian tubes 3265023732 229016 H69.93 Ear pressu re sensation 444424126 H93.8X9 Mixed cond uctive and sensorineural hearing loss, bilateral 083479732 H90.6 Deviated nasal septum 12 7529254 J34.2 Cleft uvula 51213860 Q35 .7 [id number] MILI POP [place] [facility] [address] [place] [address] 04/10/2022 16:46:51 04/10/2022 16:49:00 Mixed conductive and sensorineural hearing loss, bilateral 353020270 H90.6 Dysfunctio n of eustachian tube 12514053 H69.93 Bilateral tinnitus 30781 54538 102 H93.13 [id number] DESMOND GLASGOW III, MD [place] [address] [place] [address] 06/12/2022 15:37:27 06/16/2022 19:14:02 Dysfunction of bilateral eustachian tubes 2791594454 126585 H69.93 Ear pressu re sensation 232853625 H93.8X9 Mixed cond uctive and sensorineural hearing loss, bilateral 461675254 H90.6 Polyp of n migdalia cavity and/or nasal sinus 991850757 J33.9 Allergic rhinitis 571313 04 J30.9 [id number] DESMOND GLASGOW III, MD [place] [facility] [address] [place] [address] 09/01/2022 15:31:34 09/02/2022 08:03:50 Dysfunction of bilateral eustachian tubes 7715752014 280644 H69.93 Mixed cond uctive and sensorineural hearing loss, bilateral 548906231 H90.6 Posterior rhinorrhea 758 51174 R09.82 Ear pressu re sensation 415015498 H93.8X9 [id number] MILI AWAD [place] [facility] [address] [place] [address] 09/01/2022 16:51:07 09/01/2022 17:36:02 Dysfunction of bilateral eustachian tubes 8010764304 653217 H69.93 Bilateral earache 744253 003 H92.03 [id number] DESMOND GLASGOW III, MD [place] [facility] [address] 7 06/16/2024 14:41:24 06/16/2024 16:40:23 Dysfunction of bilateral eustachian tubes 2325139309 345324 H69.93 Mixed cond uctive and sensorineural hearing loss, bilateral 557127340 H90.6 Posterior rhinorrhea 758 09575 R09.82 Ear pressu re sensation 602060456 H93.8X9 Tympanosclerosis 4507070 1 H74.03 Polyp of n migdalia cavity and/or nasal sinus 327769256 J33.9 06/16/24 Nasal endoscopy = polypoid changes attached to middle turbinate observed in right nasal cavity Health Concerns Section Related Observation LastModified by Organization Detai ls LastModified Time None Recorded Concern Status LastModified by Organization Details LastModified Time None Recorded Advance Directives Directive None Recorded Payers Insurance Date Sequence Insurance Name Policy Number Policy Mcmullen Covered Member ID Mcmullen Member ID Guarantor Name 02/17/2021 PAYMENT PLAN Ubaldo Nguyễn 07/25/2024 1 [id number] 2 Ubaldo Nguyễn [id number] Ubaldo Nguyễn Notes Date Note Type Note Provider Name and Address Organization Details Recorded Time 04/10/2022 text/html Ubaldo comes in t [facility] for evaluation of right ear pressure. He [...] a concern today. DESMOND GLASGOW III, MD [address] [place] [address] [place], [address], [facility] 04/10/2022 17:01:17 06/12/2022 text/html Ubaldo returns [...] site from 01/16/19. DESMOND GLASGOW III, MD [address] [place] [address] [place], [address], [facility] 06/12/2022 17:43:37 09/01/2022 text/html Ubaldo visits us in office today for fluid in his right ear. Ubaldo states he feels like there is water in his right ear. It is not affecting his hearing. He does not actually see any fluid coming out of his ears. He does have drainage in the back of his throat. DESMOND GLASGOW III, MD [facility], [address], [facility] 09/01/2022 17:27:34 06/16/2024 text/html Ubaldo Nguyễn ( 53M) visits our office for an evaluation of fluid in his right ear. He reports that he has felt fluid in his right ear for the past 3 months. He is having trouble getting his ears to clear. He also deals with some nasal congestion (R>L). DESMOND GLASGOW III, MD [address] [place], [address], [facility] 06/16/2024 17:09:43
--- NOTE | 2025-03-02 15:11 | CA_ITS ---
APPROVED REPORT EXAM: Comprehensive 2D, Doppler, and color-flow Echocardiogram Tax Services Specialist: Elicia Queen RVT Ht: 5 ft 8 in Wt: 224lbs BSA: 2.14 BP: 140/74 mmHg Indications: ANGINA,ABN STRESS TEST,CAD,DM,HTN,EX SMOKER 2D Dimensions LA Volume 41.00 mL LA Volume Index 19.07 mL/m2 (M/F) 16-34 M-Mode Dimensions RVDd 3.69 cm (0.9-2.6) LA Diam 4.03 cm (1.9-4.0) LVDd 5.00 cm (3.5-5.7) LVDs 3.69 cm (3.5-5.7) IVSd 0.97 cm (0.6-1.1) PWd 0.81 cm (0.6-1.1) EF (Teich) 51.10% FS 26.20% EDV (Teich) 118.20 mL TAPSE 2.43 (<1.7) ESV (Teich) 57.80 mL LV Diastology E Decel Time 167 (160-240 msec) E/A Ratio 1.3 Aortic Valve OMID Index 1.44 cm2/m2 AoV Peak Luis. 103.0 (50-130 cm/s) AO Peak GR. 4.30 mmHg AO Mean GR. 2.40 (<5 mmHg) AO VTI 19.0 (18-25 cm) OMID (VTI) 3.16 (2.5-4.5 cm2) Mitral Valve MV E Max Luis. 82.0 (40-130 cm/s) MV A Velocity 63.0 (40-130 cm/s) E/A Ratio 1.30 MV PHT 49.0 ms Pulmonary Valve PV Peak Velocity 81.0 (50-150 cm/s) Tricuspid Valve TR P. Velocity 254.00 cm/s RAP Estimate 10.00 mmHg RVSP 35.70 mmHg Left Ventricle The left ventricle is normal size. The left ventricular systolic function is normal. The left ventricular ejection fraction is within the normal range. There is increased LV wall thickness. There is normal LV segmental wall motion. Diastolic function is normal. LVEF is 55%. Right Ventricle Right ventricle is mildly dilated. The right ventricular systolic function is normal. Atria Left atrium is mildly dilated. The right atrium is mildly dilated. Aortic Valve The aortic valve is mildly thickened. There is no aortic valvular stenosis. Trace aortic regurgitation. Mitral Valve The mitral valve is normal in structure. No evidence of mitral valve stenosis. Trace mitral regurgitation. Tricuspid Valve Tricuspid valve is grossly normal in structure and function. Mild tricuspid regurgitation. RVSP is 25-30 mmHg. Pulmonic Valve The pulmonary valve is normal in structure. Great Vessels The aortic root is normal in size. The ascending aorta is normal in size. IVC is normal in size and collapses >50% with inspiration. Pericardium There is no pericardial effusion. Other Information Study Quality: Fair Conclusion Normal biventricular systolic function. Mild RV dilation. Mild biatrial dilation. Mild TR. Electronically signed by : Rubia Kelly MD 03/08/2025 15:34:32
== END 2025-03-02 23:59 | disposition home or self-care (01) ==
LOC: RT 15:09
PROVIDERS: PCP Family Medicine; Visit Provider Nurse Practitioner
DX: I07.1 Rheumatic tricuspid insufficiency (principal); I11.9 Hypertensive heart disease without heart failure; E10.9 Type 1 diabetes mellitus without complications; I25.118 Atherosclerotic heart disease of native coronary artery with other forms of angina pectoris; R94.39 Abnormal result of other cardiovascular function study; Z87.891 Personal history of nicotine dependence
CPT/HCPCS: 93306